=== PATIENT | male | born 1935 | race Caucasian/White ===

== ENCOUNTER → 2021-03-25 20:50 | Outpatient (CLI) | payer MEDICARE, BC ==
[2021-03-25 21:24] LABS: BILIRUBIN NEGATIVE (NEGATIVE); KETONE NEGATIVE (NEGATIVE); NITRITE NEGATIVE (NEGATIVE); UROBILINOGEN NORMAL mg/dL (< 2)
[2021-03-25 21:32] LABS: WHITE CELLS - URINE >50 HPF (0-1)
[2021-03-25 21:33] LABS: BACTERIA MANY HPF (NONE SEEN)
== END | disposition home or self-care (01) ==
LOC: D.LABREF 20:50
PROVIDERS: ATTEND Internal Medicine
DX: N39.0 Urinary tract infection, site not specified (principal)